=== PATIENT | male | born 1995 | race Caucasian/White ===

== ENCOUNTER 2021-06-08 20:24 | Emergency (ER) | payer MEDICAID ==
[~2021-06-08] VITALS: Ht 193 cm; Wt 70.0 kg
[2021-06-08 20:25] VITALS: BP 122/80
== END 2021-06-08 20:52 | disposition home or self-care (01) ==
LOC: ED 20:46
DX: S01.01XD Laceration without foreign body of scalp, subsequent encounter (principal); F17.210 Nicotine dependence, cigarettes, uncomplicated; X58.XXXD Exposure to other specified factors, subsequent encounter
CPT/HCPCS: 99282